=== PATIENT | male | born 1945 | race Caucasian/White ===

== ENCOUNTER 2017-03-16 07:15 | Inpatient (IN) ==
--- NOTE | 2017-03-13 23:08 | Discharge Summary ---
<Irena Sheehan Annabella - Last Filed: 03/13/17 23:05> Date of Encounter: 03/13/17 - Discharge Diagnosis (1) Left rotator cuff tear arthropathy Priority: Primary Status: Acute (2) Status post total replacement of left shoulder Priority: Primary Status: Acute (3) History of mechanical aortic valve replacement Priority: Secondary Status: Chronic (4) Kidney disease Priority: Secondary Status: Chronic (5) Seizure Priority: Secondary Status: Chronic (6) History of repair of thoracic aortic aneurysm Priority: Secondary Status: Chronic (7) Hypertension Priority: Secondary Status: Chronic Qualifiers: Hypertension type: essential hypertension Qualified Code(s): I10 - Essential (primary) hypertension - Discharge Medications Home Medications: Aspirin [Adult Low Dose Aspirin EC] 81 mg PO DAILY 11/22/15 [History] Atorvastatin [Lipitor] 40 mg PO HS 11/22/15 [History] Omeprazole [PriLOSEC] 20 mg PO DAILY 11/22/15 [History] Warfarin perPT [Coumadin perPT] 10 each PO DAILY 11/22/15 [History] Warfarin perPT [Coumadin perPT] 15 each PO MO 11/22/15 [History] amLODIPine [Norvasc] 10 mg PO DAILY 11/22/15 [History] Febuxostat [Uloric] 40 mg PO DAILY 03/12/17 [History] Fluticasone Propionate Nasal [Flonase] 2 spr NS DAILY 03/12/17 [History] Loratadine [Allergy Relief] 10 mg PO DAILY 03/12/17 [History] carBAMazepine [Tegretol] 200 mg PO BID 03/12/17 [History] OxyCODONE/APAP 5/325 [Percocet 5/325 MG] 1 - 2 tab PO Q4HR PRN 03/15/17 [History ] Enoxaparin [Lovenox] 90 mg SQ Q12HR 03/16/17 [History] Metoprolol Succinate 100 mg PO DAILY 03/16/17 [History] Allergies/Adverse Reactions: Allergies No Known Allergies Allergy (Verified 03/12/17 06:57) Primary care physician: Glenn Haley MD - Patient Status Disposition: Home Health Service Condition: Good - Discharge Instructions Follow Up With: Glenn Haley MD [Primary Care Provider] - - Hospital Course Hospital course: Mr. Cespedes is a 72 year old male - Time Spent with Patient Total time spent providing and/or coordinating discharge services: <Arvind Gibson - Last Filed: 03/17/17 07:53> Date of Encounter: 03/17/17 Time of Encounter: 07:52 - Discharge Diagnosis (1) Hypertension Priority: Secondary Status: Chronic Qualifiers: Hypertension type: essential hypertension Qualified Code(s): I10 - Essential (primary) hypertension (2) Left rotator cuff tear arthropathy Priority: Primary Status: Chronic (3) Status post total replacement of left shoulder Priority: Primary Status: Acute (4) History of mechanical aortic valve replacement Priority: Secondary Status: Chronic (5) Kidney disease Priority: Secondary Status: Chronic (6) Seizure Priority: Secondary Status: Chronic (7) History of repair of thoracic aortic aneurysm Priority: Secondary Status: Chronic (8) Generalized seizure Priority: Primary Status: Acute Primary care physician: Glenn Haley MD - Patient Status Functional capacity at discharge: independent ambulation Overall status at discharge: patient is progressing back to baseline - Hospital Course Hospital course: Mr. Cespedes is a 72 year old male Status post left total shoulder replacement The patient had an uneventful postoperative course. They received antibiotics and physical therapy and were discharged in stable condition. There will follow -up in the office in 2 weeks. - Time Spent with Patient Total time spent providing and/or coordinating discharge services:
--- NOTE | 2017-03-15 17:06 | Physician Discharge Referral ---
Home Health/Hosp Referral Info Transfer to: Home Health Provider in Charge Post Discharge: PCP - Diagnosis (1) Left rotator cuff tear arthropathy Priority: Primary Status: Acute (2) Status post total replacement of left shoulder Priority: Primary Status: Acute (3) History of mechanical aortic valve replacement Priority: Secondary Status: Chronic (4) Kidney disease Priority: Secondary Status: Chronic (5) Seizure Priority: Secondary Status: Chronic (6) History of repair of thoracic aortic aneurysm Priority: Secondary Status: Chronic (7) Hypertension Priority: Secondary Status: Chronic - Respiratory Orders None Smoking Cessation: Smoking cessation has been advised. For more information, call the [place] Tobacco Quit Line at 5-682-KLNI-NOW. - Diet/Nutrition Diet/Nutrition Orders: Regular - Activity Activity Orders: Up ad nimco, Ambulate - Services Needed Following services are medically necessary services: Nursing, Home Health Aide, Physical Therapy, Occupational Therapy Other Treatments: Opsite dressing, leave intact until first post-operative visit. If dressing becomes >50% saturated, contact office, remove dressing and place appropriate dressing in its place. Do not allow for dressing to get wet. Shoulder Precautions x 6 weeks. Apply cold therapy wrap 3-6x/day for 20 minutes at a time. Encourage ambulation throughout the day. Use Incentive spirometer 10x/hour. Elevate affected extremity above heart as tolerated. NWB to affected upper extremity x 6 weeks. Will remove brace at first post-operative appointment. OK to remove during PT/ OT and Home exercises. - Transfer Medications Prescriptions: OxyCODONE Immed Rel [Roxicodone 5 MG] 5 - 10 mg PO Q6HR PRN #40 tablet PRN Reason: Pain Home Medications: Aspirin [Adult Low Dose Aspirin EC] 81 mg PO QTUTHSA 11/22/15 [History] Atorvastatin [Lipitor] 40 mg PO HS 11/22/15 [History] Metoprolol [Lopressor] 100 mg PO DAILY 11/22/15 [History] Omeprazole [PriLOSEC] 20 mg PO DAILY 11/22/15 [History] Warfarin perPT [Coumadin perPT] 10 each PO DAILY 11/22/15 [History] Warfarin perPT [Coumadin perPT] 15 each PO DAILY 11/22/15 [History] amLODIPine [Norvasc] 5 mg PO DAILY 11/22/15 [History] Colchicine [Mitigare] 0.6 mg PO DAILY 03/12/17 [History] Febuxostat [Uloric] 40 mg PO DAILY 03/12/17 [History] Fluticasone Propionate Nasal [Flonase] 50 mcg NS DAILY 03/12/17 [History] Loratadine [Allergy Relief] 10 mg PO DAILY 03/12/17 [History] carBAMazepine [Tegretol] 200 mg PO BID 03/12/17 [History] OxyCODONE Immed Rel [Roxicodone 5 MG] 5 - 10 mg PO Q6HR PRN #40 tablet 03/13/17 [Rx] Allergies/Adverse Reactions: Allergies No Known Allergies Allergy (Verified 03/12/17 06:57) Certification: Further, I certify that my clinical findings support that this patient is homebound (i.e. absences from home require considerable and taxing effort and are for medical reasons or adventist services or infrequently or short duration when for other reasons) because: Homebound Reason: Post-surgery restriction and or conditions limit ability to leave home Attestation: My signature below is to certify that this patient is under my care and that I, or nurse practitioner, or a physician's purchasing assistant working with me, has a face-to -face encounter with this patient.
--- NOTE | 2017-03-16 08:06 | Anesthesia Evaluation PreOp ---
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: Seizures, TIA Other Medical History: Renal, GERD (Travis's esophagus) Anesthesia History: No Prior Anesthetic Complications, Past Anesthesia Alcohol Use: none Drug use: none Medications and Allergies Aspirin [Adult Low Dose Aspirin EC] 81 mg PO DAILY 11/22/15 [History] Atorvastatin [Lipitor] 40 mg PO HS 11/22/15 [History] Omeprazole [PriLOSEC] 20 mg PO DAILY 11/22/15 [History] Warfarin perPT [Coumadin perPT] 10 each PO DAILY 11/22/15 [History] Warfarin perPT [Coumadin perPT] 15 each PO MO 11/22/15 [History] amLODIPine [Norvasc] 10 mg PO DAILY 11/22/15 [History] Febuxostat [Uloric] 40 mg PO DAILY 03/12/17 [History] Fluticasone Propionate Nasal [Flonase] 2 spr NS DAILY 03/12/17 [History] Loratadine [Allergy Relief] 10 mg PO DAILY 03/12/17 [History] carBAMazepine [Tegretol] 200 mg PO BID 03/12/17 [History] OxyCODONE/APAP 5/325 [Percocet 5/325 MG] 1 - 2 tab PO Q4HR PRN 03/15/17 [History ] Lovenox 03/16/17 [History] Metoprolol Succinate 100 mg PO DAILY 03/16/17 [History] Allergies No Known Allergies Allergy (Verified 03/12/17 06:57) - Meds/Allergy Pre-op Review Medications Reviewed: Yes Allergies Reviewed: Yes Beta Blockers on Current Med List: Yes If Beta Blockers taken, Date/Time (Last Dose taken): 03/16/2017 at 0630 Anesthesia Results - Labs Laboratory Tests 03/15/17 03/15/17 03/15/17 18:29 18:29 18:29 WBC 9.2 Hgb 13.4 Hct 37.9 Plt Count 232 PT 13.4 H INR 1.2 APTT 31.3 Sodium Potassium BUN Creatinine 03/15/17 18:29 WBC Hgb Hct Plt Count PT INR APTT Sodium 132 L Potassium 4.1 BUN 37 H Creatinine 1.44 H - Imaging EKG: report reviewed (03/02/2017 SR, borderline 1st degree AV block, LAFB, NSST abnormality) Additional studies: 03/08/2017 Echo Impressions: LVEF 60%. Normal left ventricular size and systolic function. There is evidence of mild diastolic dysfunction of the left ventricle. Increased LV wall thickness. Normal right ventricular size and function. S/p mechanical aortic valve replacement. Mechanical leaflet mobility is suboptimally visualized. Doppler gradients are unremarkable (PV 1.85m/s, MG 8 mmHg). Mild valvular regurgitation seen in Apical 5CH. Mild mitral regurgitation. Mild tricuspid regurgitation. No pulmonary hypertension by TR gradient. Aortic Valve Peak Marlon: 1.87 m/sec Mean Marlon: 1.39 m/sec Peak Grad: 14.00 mmHg Mean Grad: 8.00 mmHg Valve Area: 1.00 cm2 AI pressure Half-time: 511.00 msec Anesthesia Exam O2 Sat Height 1.75 m Height 1.75 m Weight 90.718 kg Weight 90.718 kg O2 Sat by Pulse Oximetry 98 Vital Signs Temp Pulse Resp BP Pulse Ox 98.8 F 83 18 121/75 98 03/16/17 07:48 03/16/17 07:48 03/16/17 07:48 03/16/17 07:48 03/16/17 07:48 Height: 5'9'' Weight: 200 lbs NPO (# of Hours): 8 Pain Scale: 4 Pain Scale Used: Numeric (1 - 10) - HEENT Pupil (Motor): EOMI Mallampati: II Teeth: Poor dentition Oral Opening: Greater than 3 - AIR TABLE OPERATOR LOC: Oriented AIR TABLE OPERATOR Motor: Normal RUE, Normal RLE, Normal LLE, Normal Face, Deficit LUE AIR TABLE OPERATOR Sensory: Normal: RUE, RLE, LLE, Face, Deficit: LUE - Cardiac Rhythm: Regular Murmur: None - Pulmonary Breath Sounds: bilateral Clear Respiratory Effort: Symmetrical Anesthesia Assess/Plan ASA Score: 3 Modified Frank Scale for Level of Consciousness: Cooperative, oriented, and tranquil Anesthetic Plan: General Monitoring Plan: Standard Monitors Recovery Plan: PACU
[2017-03-16] MEDS ORDERED: Lidocaine -MPF 2% 2 ML VIAL ONE (08:16)
[2017-03-16] MEDS ORDERED: Ondansetron 4 MG/2 ML VIAL ONE (08:16)
[2017-03-16] MEDS ORDERED: Dexamethasone 4 MG/ML VIAL ONE (08:16)
[2017-03-16] MEDS ORDERED: *HR* Succinylcholine 200 MG/10 ML VIAL IVP ONE (08:16)
[2017-03-16] MEDS ORDERED: *HR* FentaNYL (PF) 100 MCG/2 ML VIAL ONE (08:16)
[2017-03-16] MEDS ORDERED: *HR* Midazolam HCl 2 MG/2 ML VIAL ONE (08:17)
[2017-03-16] MEDS ORDERED: *HR* Propofol 200 MG/20 ML VIAL IVP ONE (08:17)
[2017-03-16] MEDS ORDERED: CeFAZolin Pre 2,000 MG/100 ML 2,000 MG/100 ML BAG IVPB ONE (08:28)
--- NOTE | 2017-03-16 08:31 | History & Physical Report ---
Date of Encounter: 03/16/17 Time of Encounter: 08:31 24 Hour HP Update - Instructions Instructions: If the History and Physical is less than 30 days old and was completed prior to A.M. admission and or procedure and has NOT been updated on calendar day of procedure please complete this update prior to performing procedure. - Update Patient reports changes in Medical Condition: No Changes in examination, assessment, or condition: No Changes in Medication: No Preop tests/diagnostics Reviewed: Yes Surgery Remains Indicated: Yes Consent for Planned Operative Procedure(s) Verified: Yes - Pre-Operative Checklist Preoperative Checklist Indicated: No Prophylactic Antibiotic Ordered: Yes Is VTE Prophylaxis Indicated?: Yes
[2017-03-16] MEDS ORDERED: 0.9 % Sodium Chloride 500 ML IVC SCH (08:45)
[2017-03-16] MEDS ORDERED: Lidocaine -MPF 4% 5 ML AMPUL ONE (08:47)
[2017-03-16] MEDS ORDERED: Metoclopramide 10 MG/2 ML VIAL ONE (08:58)
[2017-03-16] MEDS ORDERED: Famotidine 20 MG/2 ML VIAL ONE (08:59)
[2017-03-16] MEDS ORDERED: *HR* HYDROmorphone 2 MG/ML SYRINGE ONE (09:58)
[2017-03-16] MEDS ORDERED: Acetaminophen IV 1,000 MG/100 ML INFUS..BTL ONE (10:06)
[2017-03-16] MEDS ORDERED: *HR* HYDROmorphone (PF) 1 MG/ML SYRINGE IVP PRN ×2 (10:21→11:43)
[2017-03-16] MEDS ORDERED: Ondansetron 4 MG/2 ML VIAL IVP ONE (10:21)
[2017-03-16] MEDS ORDERED: *HR* Promethazine 25 MG/ML VIAL IVP PRN (10:21)
--- NOTE | 2017-03-16 10:31 | Orthopedic Operative Note ---
Date of procedure: 03/16/17 Pre-op diagnosis: Left cuff tear arthropathy Post-op diagnosis: same Procedure: Procedure: Left Total Shoulder Replacment Reverse Estimated blood loss: 100 cc Hardware: Metal and polyethylene replacement: Arthrex large glenoid baseplate, 2 4.5 screws. 1 6.5 screw, 42+4 glenosphere, 11 humeral stem, poly insert 36 metal Exam Under anesthesia: Restricted motion in all planes Procedural Notes: Patient with a significant hemarthrosis and submuscular hematoma radha 4 arthritic changes humeral head and glenoid socket.. Operative procedure: The patient was brought to the operating room and placed on the operating room table. After general anesthesia was administered the operative shoulder was examined. Findings were noted. The patient was placed in the modified beachchair position. All pressure points were padded appropriately. And the head was stabilized in the neutral position. The operative extremity was prepped and draped in the sterile surgical fashion. The patient received IV antibiotics prior to skin incision. A standard deltopectoral approach was made to the operative shoulder. Incision was made to the skin and subcutaneous tissue,hemo stasis was obtained with Bovie cautery. Using careful blunt dissection the cephalic vein was identified and mobilized medially. The deltopectoral interval was developed and the clavipectoral fascia was incised. Patient noted to have significant submuscular hematoma which was evacuated. The subscap was released off the lesser tuberosity and tagged with #2 FiberWire suture subscap was irreparable.. The humerus was dislocated patient noted to have irreparable tear supraspinatus tendon, and the humeral cut was made along the anatomic neck. Patient noted to have grade 4 arthritic changes humeral head and glenoid socket. Anterior and posterior Bankart retractors were placed to expose the glenoid. The glenoid guide was seated and the centering hole was made. It was reamed with the appropriate reamer. The large baseplate was seated and secured with (2) 4.5 screws and one 6.5 screw. The baseplate was irrigated and dried and the 42+4 Glenosphere was seated and secured with the Landa taper. The Landa taper was tested and found to be secure the humerus was redislocated and prepared with the diaphyseal reamers, followed by a broaching process up to the appropriate size 11 in the patient's anatomic version. The metaphyseal reamer was then utilized. Trial reduction found the shoulder to be relocatable. Trial components were removed. The appropriate 11 stem was impacted in place in the patient's anatomic version. Trial reduction found the shoulder to be relocatable and stable with the appropriate 6 metal 3 Brandy Trial component was removed and the real implants was seated and secured the shoulder was reduced. The shoulder had excellent motion and excellent stability and no evidence of dislocation. The deep tissue was irrigated with pulse irrigation. The PA closed the shoulder. The deltopectoral interval was closed with a running #1 PDS suture, subcutaneous tissue was irrigated and closed with 0 PDS suture, the skin was closed with Dermabond. The patient was placed in a sterile dressing, abduction brace and extubated. The patient was then transferred to the recovery room in stable condition. Anesthesia: LALITO Surgeon: Arvind Gibson Flight Control Manager: Irena Sheehan Condition: stable Disposition: PACU
--- NOTE | 2017-03-16 11:33 | Anesthesia Evaluation Post Op ---
Date of Encounter: 03/16/17 Time of Encounter: 11:33 - Vital Signs Vital Signs: Vital Signs/O2 Sat, Most Current Temp Pulse Resp BP Pulse Ox 97.8 F 74 16 158/81 98 03/16/17 11:22 03/16/17 11:22 03/16/17 11:22 03/16/17 11:22 03/16/17 11:22 - Lungs Lungs: Clear Ascult./Percussion - Airway Airway: Non-obstructed - Cardiovascular Regular Rate - Mental Status Mental Status: Alert & Oriented, Answers Appropriately - Pain Pain Scale: 0 Pain Scale used: Numeric (1 - 10) - Nausea Vomiting Nausea Vomiting: Not Present - Hydration Hydration: NPO, Has not voided - Discharge PostOp Status: Transfer Patient to floor
[2017-03-16] MEDS ORDERED: Temazepam 15 MG CAPSULE PO PRN (11:43)
[2017-03-16] MEDS ORDERED: Naloxone 0.4 MG/ML INJ IVP PRN (11:43)
[2017-03-16] MEDS ORDERED: *HR* OxyCODONE Immed Rel 5 MG TABLET PO PRN ×2 (11:43)
[2017-03-16] MEDS ORDERED: Sennosides 8.6 MG TABLET PO PRN (11:43)
[2017-03-16] MEDS ORDERED: Ringers Solution, Lactated 1,000 ML IVC SCH (11:43)
[2017-03-16] MEDS ORDERED: Ondansetron 4 MG/2 ML VIAL IVP PRN (11:43)
[2017-03-16] MEDS ORDERED: MOM Conc 10 ML UD.LIQ PO PRN (11:43)
[2017-03-16 12:05] LABS: Hematocrit 37.6 % (37.5-50.1); Hemoglobin 12.8 g/dL (12.9-16.9)
[2017-03-16] MEDS: ceFAZolin 2,000 MG in D5% in Water 100 ML IVPB SCH ×2 (17:32→23:56)
[2017-03-16] MEDS: *HR* Enoxaparin 100 MG/ML SYRINGE SQ SCH (17:32)
[2017-03-16] MEDS ORDERED: *HR* Enoxaparin 30 MG/0.3 ML SYRINGE SQ SCH (18:00)
[2017-03-16] MEDS ORDERED: *HR* Warfarin 5 MG TABLET PO SCH (18:00)
[2017-03-16] MEDS: Warfarin perPT PO SCH (18:25)
[2017-03-16] MEDS: carBAMazepine 200 MG TABLET PO SCH (19:37)
[2017-03-17 01:07] LABS: Hematocrit 36.7 % (37.5-50.1); Hemoglobin 12.4 g/dL (12.9-16.9)
[2017-03-17] MEDS: *HR* Enoxaparin 100 MG/ML SYRINGE SQ SCH (05:44)
[2017-03-17 07:01] VITALS: BP 155/79
--- NOTE | 2017-03-17 07:54 | Orthopedics Progress Note ---
Date of Encounter: 03/17/17 Time of Encounter: 07:54 - Assessment and Plan (1) Hypertension Current Visit: No Status: Chronic Qualifiers: Hypertension type: essential hypertension Qualified Code(s): I10 - Essential (primary) hypertension (2) Left rotator cuff tear arthropathy Current Visit: Yes Status: Chronic (3) Status post total replacement of left shoulder Current Visit: Yes Status: Acute (4) History of mechanical aortic valve replacement Current Visit: Yes Status: Chronic (5) Kidney disease Current Visit: Yes Status: Chronic (6) Seizure Current Visit: Yes Status: Chronic (7) History of repair of thoracic aortic aneurysm Current Visit: Yes Status: Chronic (8) Generalized seizure Current Visit: No Status: Acute Subjective Interval history: Patient was seen this morning doing well without complaints. Afebrile vital signs stable. Operative extremity: Neurovascularly intact Dressing clean dry and intact Calves nontender Assessment and plan: Continue with postoperative care Hematocrit 36 discharged today Objective Vital signs: Vital Signs Temp Pulse Resp BP Pulse Ox 03/17/17 07:00 98.4 F 86 18 155/79 95 03/17/17 04:00 98.4 F 80 16 150/79 95 03/17/17 00:06 98.6 F 86 15 128/70 94 03/16/17 19:34 98.9 F 85 19 146/73 97 03/16/17 16:14 97.4 F L 78 18 140/81 96 03/16/17 14:50 98.1 F 72 15 154/79 95 03/16/17 13:40 98 F 73 16 150/74 97 03/16/17 12:40 98.1 F 71 16 148/73 97 03/16/17 12:05 98.3 F 74 14 157/80 97 03/16/17 11:50 97 03/16/17 11:40 98.3 F 75 15 161/79 96 03/16/17 11:32 97.8 F 73 16 147/83 98 03/16/17 11:22 97.8 F 74 16 158/81 98 03/16/17 11:12 73 16 159/81 98 03/16/17 11:02 74 16 165/75 98 03/16/17 10:52 97.3 F L 70 16 159/82 100 Intake and Output 03/16/17 03/16/17 03/17/17 15:59 23:59 07:59 Intake Total 280 / 280 100 / 100 Output Total 100 / 100 600 / 600 Balance 180 / 180 100 / 100 -600 / -600 Intake: IV Fluids 100 / 100 Ancef 2,000 MG In 100 / 100 Dextrose 5% 100 ML @ 200 mls/hr IVPB Q8HR RIMA Rx#: [id number] Oral 280 / 280 Output: Urine 0 / 0 600 / 600 Estimated Blood Loss 100 / 100 Other: Meal Lunch Percent of Meal Consumed 50% # Voids 1 1 - Labs CBC & BMP: 03/17/17 00:56 Labs: Abnormal lab results Hgb 12.4 g/dL (12.9-16.9) L 03/17/17 00:56 Hct 36.7 % (37.5-50.1) L 03/17/17 00:56 - VTE Documentation of Mechanical Device: Venous foot pump, device Consult Discharge Plan - Plan Referrals: Glenn Haley MD [Primary Care Provider] -
[2017-03-17] MEDS ORDERED: Metoprolol XL (24 HR) Succ 50 MG TAB.ER.24H PO SCH (09:00)
[2017-03-17] MEDS ORDERED: amLODIPine 5 MG TABLET PO SCH (09:00)
[2017-03-17] MEDS ORDERED: Loratadine 10 MG TABLET PO SCH (09:00)
[2017-03-17] MEDS ORDERED: Febuxostat [Uloric] 40 MG PO SCH (09:00)
[2017-03-17] MEDS ORDERED: Fluticasone Propionate Nasal 50 MCG/SPRAY BOTTLE NS SCH (09:00)
[2017-03-17] MEDS ORDERED: Aspirin Enteric Coated 81 MG Tablet PO SCH (09:00)
[2017-03-17] MEDS: carBAMazepine 200 MG TABLET PO SCH (09:35)
[2017-03-17] MEDS: Warfarin perPT PO SCH (10:16)
[2017-03-17 10:55] LABS: INR 1.3; Prothrombin Time 14.1 Seconds (9.4-12.1)
--- NOTE | 2017-03-17 11:16 | Event Note ---
Date of Encounter: 03/17/17 Time of Encounter: 11:15 PCR - POD#1 - Left TSR-r .- large hemarthrosis intra-op - on Warfarin - INR 1.3 - will need bridge prior to discharge Patient seen at bedside. Pain control: adequate Participating in PT. All questions and concerns addressed. Educated on use of incentive spirometer, ambulation, and hydration. Patient educated on post-operative restrictions and care. Addressed: Doppler of NOÉ prior to discharge - extensive amount of edema and swelling prior to his surgery - on Warfarin D/C plan:. Home today - INR 1.3 - will need bridge prior to discharge with Lovenox SQ - weightbased lovenox to be continued. F/up with coumadin clinic this week for close INR monitoring. Once doppler completed, he is set for discharge. Opsite dressing, leave intact until first post-operative visit. If dressing becomes >50% saturated, contact office, remove dressing and place appropriate dressing in its place. Do not allow for dressing to get wet. Shoulder Precautions x 6 weeks. Apply cold therapy wrap 3-6x/day for 20 minutes at a time. Encourage ambulation throughout the day. Use Incentive spirometer 10x/hour. Elevate affected extremity above heart as tolerated. NWB to affected upper extremity x 6 weeks. Will remove brace at first post-operative appointment. OK to remove during PT/ OT and Home exercises.
--- NOTE | 2017-03-17 14:59 | Venous Imaging Report ---
UE Venous Duplex Patient Name:Omar Cespedes Order Number:[id number] Procedure Date:03/17/2017 Date:5Age:72 yrs Gender:Male Location:[facility] Room #: [id number] Well Tender:Mela Flores RDCS, RVT Referring MD:Irena Sheehan PA-C instructional technology coordinator:Glenn Haley MD Reading MD:Joaquín Paez MD , FACS Study Quality:Technically Difficult Limited By: Contracted Position Primary Indications:Swelling Secondary Indications: Risk Factors Yes/No Hx of DVT Unknown Hx of Chemotherapy No Recent Surgery Yes Recent IV therapy ( past 2 weeks) No Impressions: Left upper extremity: normal superficial and deep exam. Right upper extremity: normal contralateral exam. Recommendations: Test completed on 03/17/2017 at 1:24:34 pm. Critical findings reported to Lona by phone at 1:26:51 pm on 03/17/2017 by Mela Flores RDCS, RVT. Upper Extremity Venous Duplex Side Vein Compress Spontaneous Flow Augment Left Jugular Normal Yes Phasic Yes Left Subclavian Normal Yes Phasic Yes Left Axillary Normal Yes Phasic Yes Left Brachial Normal Yes Phasic Yes Left Cephalic Normal Yes Phasic Yes Left Basilic Normal Yes Phasic Yes Left Radial Normal Yes Phasic Yes Left Ulnar Normal Yes Phasic Yes Right Subclavian Normal Yes Phasic Yes Updated by Joaquín Paez MD, FACS on 03/17/2017 2:54:45 PM Joaquín Paez MD electronically signed on 03/17/2017 2:55:04 PM with status of Final
[2017-03-21] MEDS ORDERED: Warfarin perPT PO SCH (09:41)
[2017-03-21] MEDS ORDERED: *HR* Warfarin 5 MG TABLET PO SCH (18:00)
== END 2017-03-17 13:55 | disposition home health service (06) | DRG 483 ==
LOC: SAMDAY 07:15 → 3NENU 11:44
PROVIDERS: ADMIT Orthopaedic Surgery; ATTEND Orthopaedic Surgery

== ENCOUNTER 2021-02-03 10:11 | Observation (INO) ==
[2021-02-03 10:50] LABS: Basophils # 0.1 K/mcL (0.0-0.2); Eosinophils # 0.2 K/mcL (0.0-0.6); Hemoglobin 15.6 g/dL (12.9-16.9); Immature Granulocytes % 0.5 % (0-4); Lymphocytes % 11.4 %; Mean Corpuscular HGB Conc 33.9 g/dL (31.6-35.5); Mean Corpuscular Hemoglobin 29.3 pg (28.0-33.3); Mean Corpuscular Volume 86.3 fL (83.0-100.0); Monocytes # 0.8 K/mcL (0.0-1.3); Neutrophils # 6.6 K/mcL (1.6-8.9); Platelet Count 174 K/mcL (140-400); Red Blood Count 5.33 M/mcL (4.19-5.50); Red Cell Distribution Width 13.2 % (11.5-14.5); Segmented Neutrophils % 76.1 %; White Blood Count 8.7 K/mcL (4.3-11.1)
[2021-02-03 11:58] LABS: INR 3.1; Prothrombin Time 34.3 Seconds (9.4-12.1)
[2021-02-03 12:00] LABS: Activated Partial Thrombo Time 39.7 Seconds (26.0-36.0)
[2021-02-03 12:18] LABS: Calcium 8.9 mg/dL (8.6-10.3); Potassium 4.3 mEq/L (3.5-5.1)
[2021-02-03] MEDS ORDERED: Isovue-370 500 ML BOTTLE IVP ONE (13:00)
[2021-02-03] MEDS ORDERED: MetroNIDAZOLE 500 MG/100 ML 500 MG/100 ML BAG IVPB ONE (14:27)
[2021-02-03] MEDS ORDERED: Ondansetron 4 MG/2 ML VIAL IVP PRN (15:09)
[2021-02-03] MEDS ORDERED: *HR* HYDROcodone/Acet 5/325 mg TABLET PO PRN (15:09)
[2021-02-03] MEDS ORDERED: *HR* OxyCODONE Immed Rel 5 MG TABLET PO PRN (15:09)
[2021-02-03] MEDS ORDERED: Naloxone 0.4 MG/ML INJ IVP PRN (15:09)
[2021-02-03] MEDS ORDERED: Ringers Solution, Lactated 1,000 ML IVC SCH (15:15)
[2021-02-03 15:38] LABS: Hematocrit 42.9 % (37.5-50.1); Hemoglobin 14.4 g/dL (12.9-16.9)
[2021-02-03] MEDS: Piperacillin/Tazobactam 3.375 GM in 0.9 % Sodium Chloride Mini Bag 100 ML IVPB SCH (16:57)
[2021-02-03] MEDS: levETIRAcetam 250 MG TABLET PO SCH (21:10)
[2021-02-03] MEDS: CarBAMazepine 100 MG TABLET PO SCH (21:11)
[2021-02-03] MEDS: 0.9 % Sodium Chloride 1,000 ML IVC SCH (21:52)
[2021-02-03 22:37] LABS: Hemoglobin 14.5 g/dL (12.9-16.9)
[2021-02-03 23:55] LABS: Adenovirus F 40/41 PCR Not detected (Not detect); Astrovirus PCR Not detected (Not detect); Campylobacter by PCR Not detected (Not detect); Cryptosporidium by PCR Not detected (Not detect); Cyclospora cayetanensis PCR Not detected (Not detect); E. coli O157 by PCR Not detected (Not detect); Entamoeba histolytica PCR Not detected (Not detect); Enteroaggregative E.coli(EAEC) Not detected (Not detect); Enteropathogenic E.coli(EPEC) Not detected (Not detect); Enterotoxigenic E.coli (ETEC) Not detected (Not detect); Giardia lamblia PCR Not detected (Not detect); Norovirus GI/GII PCR Not detected (Not detect); Plesiomonas shigelloides PCR Not detected (Not detect); Rotavirus A PCR Not detected (Not detect); Salmonella PCR Not detected (Not detect); Sapovirus PCR Not detected (Not detect); Shig/EnteroinvasiveE coli EIEC Not detected (Not detect); Shigalike tox-prod E coli STEC Not detected (Not detect); Vibrio PCR Not detected (Not detect); Vibrio cholerae PCR Not detected (Not detect); Yersinia enterocolitica PCR Not detected (Not detect)
[2021-02-03 23:58] LABS: C.difficile Toxin A/B Gene PCR DETECTED (Not detect)
[2021-02-04] MEDS: Piperacillin/Tazobactam 3.375 GM in 0.9 % Sodium Chloride Mini Bag 100 ML IVPB SCH ×3 (00:58→17:47)
[2021-02-04 04:56] LABS: INR 2.8; Prothrombin Time 31.7 Seconds (9.4-12.1)
[2021-02-04 05:00] LABS: BUN/Creatinine Ratio 14 (6-26); Blood Urea Nitrogen 17 mg/dL (8-23); Calcium 8.4 mg/dL (8.6-10.3); Carbon Dioxide 23 mEq/L (23-29); Chloride 106 mEq/L (98-107); Glucose 102 mg/dL (70-105); Magnesium 1.6 mg/dL (1.6-2.6); Osmolality,Calculated 286 (280-300); Phosphorous 2.7 mg/dL (2.7-4.5); Potassium 3.9 mEq/L (3.5-5.1); Sodium 137 mEq/L (136-145); eGFR For African Americans > 60 (> 60); eGFR For Non-African Americans 57 (> 60)
[2021-02-04] MEDS: Loratadine 10 MG TABLET PO SCH (07:31)
[2021-02-04] MEDS: Metoprolol XL (24 HR) Succ 50 MG TAB.ER.24H PO SCH (07:31)
[2021-02-04] MEDS: amLODIPine 5 MG TABLET PO SCH (07:31)
[2021-02-04] MEDS: levETIRAcetam 250 MG TABLET PO SCH ×2 (07:31→21:34)
[2021-02-04] MEDS: CarBAMazepine 100 MG TABLET PO SCH ×2 (07:31→21:34)
[2021-02-04] MEDS: 0.9 % Sodium Chloride 1,000 ML IVC SCH (09:06)
[2021-02-04] MEDS: Vancomycin Oral Soln 125 MG/2.5 ML UDC PO SCH ×2 (18:09→22:18)
[2021-02-05] MEDS: Piperacillin/Tazobactam 3.375 GM in 0.9 % Sodium Chloride Mini Bag 100 ML IVPB SCH ×2 (01:00→07:22)
[2021-02-05 07:15] VITALS: BP 170/95
[2021-02-05] MEDS: Loratadine 10 MG TABLET PO SCH (07:21)
[2021-02-05] MEDS: levETIRAcetam 250 MG TABLET PO SCH (07:21)
[2021-02-05] MEDS: Metoprolol XL (24 HR) Succ 50 MG TAB.ER.24H PO SCH (07:21)
[2021-02-05] MEDS: amLODIPine 5 MG TABLET PO SCH (07:21)
[2021-02-05] MEDS: CarBAMazepine 100 MG TABLET PO SCH (07:21)
[2021-02-05] MEDS: Vancomycin Oral Soln 125 MG/2.5 ML UDC PO SCH (07:22)
[2021-02-05] MEDS ORDERED: amLODIPine 5 MG TABLET PO ONE (08:04)
[2021-02-05] MEDS ORDERED: NON-FORMULARY MEDICATION 1 EACH EACH (Amlodipine Besylate 10 MG Tablet) PO SCH (09:00)
[2021-02-05] MEDS ORDERED: Gabapentin 100 MG CAPSULE PO SCH (09:00)
[2021-02-06] MEDS ORDERED: amLODIPine 5 MG TABLET PO SCH (09:00)
== END 2021-02-05 11:35 | disposition home or self-care (01) ==
LOC: 3ANU 10:11 → EMEROOARM 10:11 → 3ANU 16:31
PROVIDERS: ADMIT Internal Medicine; ATTEND Internal Medicine